=== PATIENT | male | born 1985 | race Caucasian/White ===

== ENCOUNTER 2023-11-27 10:29 | Emergency (ER) | payer SELFPAY ==
[2023-11-27] MEDS: cefTRIAXone 1 GM, Lidocaine 1% 2.1 ML IM ONE ×2 (11:25)
== END 2023-11-27 11:36 | disposition home or self-care (01) ==
LOC: DL.ED 10:29 → MERGE 10:29 → DL.ED 11:36
DX: H66.002 Acute suppurative otitis media without spontaneous rupture of ear drum, left ear (principal); J18.9 Pneumonia, unspecified organism; F17.210 Nicotine dependence, cigarettes, uncomplicated; Z86.16 Personal history of COVID-19; Z88.0 Allergy status to penicillin
CPT/HCPCS: 96372; 99282; J0696; J3490